=== PATIENT | male | born 1970 | race Caucasian/White ===

== ENCOUNTER 2022-02-01 11:45 | Inpatient (IN) | payer BC ==
[~2022-02-01] VITALS: Ht 193 cm; Wt 225.0 kg
[2022-02-01] MEDS ORDERED: morphine 2 MG/ML inj. syringe IV PRN ×2 (14:35)
[2022-02-01] MEDS ORDERED: nitroGLYCERIN 0.4mg SUBLingual tab SL PRN (14:35)
[2022-02-01] MEDS ORDERED: magnesium hydroxide 30ml (MOM) UD suspension PO PRN (14:35)
[2022-02-01] MEDS ORDERED: mag hydrox/Alum hydrox/simeth 30ml oral suspension PO PRN (14:35)
[2022-02-01] MEDS ORDERED: ondansetron/PF 4mg/2ml inj IV PRN (14:35)
[2022-02-01] MEDS ORDERED: acetaminophen 325mg tablet PO PRN ×2 (14:35)
[2022-02-01] MEDS ORDERED: HYDROcodone/acetaminophen 10/325mg tab PO PRN (14:35)
[2022-02-01] MEDS ORDERED: HYDROcodone/acetaminophen 5mg/325mg tablet PO PRN (14:35)
[2022-02-01] MEDS ORDERED: ALBU8HFA PO (14:53)
[2022-02-01] MEDS ORDERED: FURO-149 PO (14:53)
[2022-02-01] MEDS ORDERED: CARV6.253 PO (14:53)
[2022-02-01] MEDS ORDERED: BUSP7.5T3 PO (14:53)
[2022-02-01] MEDS ORDERED: LISI10TA27 PO (14:53)
[2022-02-01] MEDS ORDERED: POTA10TA PO (14:53)
[2022-02-01] MEDS ORDERED: HYDR-3686 PO (14:53)
[2022-02-01] MEDS ORDERED: CITA20TA27 PO (14:53)
[2022-02-01] MEDS ORDERED: APIX5TAB3 PO (14:53)
[2022-02-01] MEDS ORDERED: ACLI400A2 INH (15:08)
[2022-02-01] MEDS: docusate sod 100mg capsule PO SCH (20:46)
[2022-02-01] MEDS: furosemide 40mg/4ml inj IV SCH (20:46)
--- NOTE | 2022-02-01 21:30 | NUR ---
Received report from Courtney ED RN. Awaiting patient arrival to the floor.
--- NOTE | 2022-02-01 21:35 | NUR ---
Patient arrived to the floor via wheelchair accompanied by PCT. Placed in room 3025H. Placed on Tele. Patient awake, alert and oriented on room air, in no apparent distress. Call light and items of frequent use within reach. Will continue to monitor.
[2022-02-01 21:45] VITALS: BP 121/90
[2022-02-02] VITALS (13 sets, daily range): BP systolic 107–139; BP diastolic 73–104
[2022-02-02 02:02] LABS: BASOPHILS # (AUTO) 0.1 X10'3 (0-0.2); BASOPHILS % (AUTO) 1.1 % (0-1); EOSINOPHILS # (AUTO) 0.3 X10'3 (0-0.9); EOSINOPHILS % (AUTO) 3.8 % (0-6); HEMOGLOBIN 14.9 g/dl (14.0-17.9); LYMPHOCYTES # (AUTO) 2.6 X10'3 (1.1-4.8); LYMPHOCYTES % (AUTO) 28.4 % (21-51); MEAN CORPUSCULAR HEMOGLOBIN 31.9 PG (27.0-31.0); MEAN CORPUSCULAR HGB CONC 33.8 g/dL (33.0-36.5); MEAN CORPUSCULAR VOLUME 94.4 FL (78-98); MEAN PLATELET VOLUME 8.9 FL (7.4-10.4); MONOCYTES # (AUTO) 0.6 X10'3 (0-0.9); MONOCYTES % (AUTO) 6.4 % (2-12); NEUTROPHILS # (AUTO) 5.4 X10'3 (1.8-7.7); NEUTROPHILS % (AUTO) 60.3 % (42-75); PLATELET COUNT 255 X10'3 (140-440); RED BLOOD COUNT 4.66 X10'6 (4.70-6.10); RED CELL DISTRIBUTION WIDTH 14.5 % (11.5-14.5)
[2022-02-02 02:04] LABS: ALBUMIN 3.5 G/DL (3.4-5.0); ANION GAP 10 (8-16); BLOOD UREA NITROGEN 37 MG/DL (7-18); CALCIUM 8.9 MG/DL (8.5-10.1); CHLORIDE 103 MMOL/L (99-107); CREATININE 1.68 MG/DL (0.60-1.10); GLUCOSE 103 MG/DL (70-104); POTASSIUM 4.4 MMOL/L (3.5-5.1); SODIUM 139 MMOL/L (135-145); TOTAL CARBON DIOXIDE 26.4 MMOL/L (24-32); eGFR 43 ML/MIN
--- NOTE | 2022-02-02 06:26 | NUR ---
Problems reprioritized. Patient report given, questions answered & plan of care reviewed with IVAN Dang.
[2022-02-02] MEDS: furosemide 40mg/4ml inj IV SCH ×2 (07:37→12:37)
[2022-02-02] MEDS: aspirin 81mg, enteric-coated 1 TAB TABLET.DR PO SCH ×2 (07:38→12:36)
[2022-02-02] MEDS: docusate sod 100mg capsule PO SCH ×2 (07:38→12:36)
[2022-02-02] MEDS: apixaban 5mg tablet PO SCH ×2 (08:33→12:36)
[2022-02-02] MEDS: carvedilol 6.25mg tablet PO SCH ×2 (08:33→12:37)
[2022-02-02] MEDS: citalopram 20mg tablet PO SCH ×2 (08:34→12:36)
[2022-02-02] MEDS: lisinopril 10 MG tablet PO SCH ×2 (08:34→12:37)
[2022-02-02] MEDS ORDERED: nitroGLYCERIN 0.4mg SUBLingual tab SL PRN (08:35)
[2022-02-02] MEDS ORDERED: metoprolol tartrate 1mg/ml inj IV PRN (08:35)
[2022-02-02] MEDS ORDERED: aminophylline 500mg/20ml vial IV PRN (08:35)
[2022-02-02] MEDS ORDERED: regadenoson 0.4mg/5ml syringe IV PRN (08:35)
[2022-02-02] MEDS: busPIRone 15mg tablet PO SCH ×2 (08:35→12:37)
--- NOTE | 2022-02-02 13:24 | NUR ---
PAGER ID: [phone] MESSAGE: [id number] Edwardo Mallory: Stress test has resulted. can patient eat lunch? thanks, marissa [phone]
[2022-02-02] MEDS ORDERED: ALBU8HFA PO (13:51)
[2022-02-02] MEDS ORDERED: ACLI400A2 INH (13:51)
[2022-02-02] MEDS ORDERED: HYDR-3686 PO (13:51)
[2022-02-02] MEDS ORDERED: CITA20TA27 PO (13:51)
[2022-02-02] MEDS ORDERED: BUSP7.5T3 PO (13:51)
[2022-02-02] MEDS ORDERED: FURO-149 PO (13:51)
[2022-02-02] MEDS ORDERED: NICO1PAT36 TOP (13:51)
[2022-02-02] MEDS ORDERED: LISI10TA27 PO (13:51)
[2022-02-02] MEDS ORDERED: APIX5TAB3 PO (13:51)
[2022-02-02] MEDS ORDERED: CARV6.253 PO (13:51)
[2022-02-02] MEDS ORDERED: SPIR25TA5 PO (13:53)
[2022-02-02 15:47] LABS: CHOLESTEROL 185 MG/DL (0-200); HDL CHOLESTEROL 31 MG/DL (35-60); LDL CHOLESTEROL 127 MG/DL (50-100); TRIGLYCERIDES 195 MG/DL (20-135)
--- NOTE | 2022-02-02 16:00 | NUR ---
PAGER ID: [phone] MESSAGE: [id number] Edwardo Mallory: lipid panel resulted. would you like any new orders before this patient discharges? thanks! marissa [phone]
[2022-02-02] MEDS ORDERED: ATOR20TA66 PO (16:06)
--- NOTE | 2022-02-02 16:40 | NUR ---
Patient stable and appropriate for discharge home with family member. IV x2 removed, director of counterintelligence removed. all belongings taken from room. New RX e-scripted to preferred pharmacy ([facility]). All discharge instructions and education given and reviewed with patient, all questions answered.
[2022-02-02] MEDS ORDERED: hydrOXYzine 25 MG tablet PO SCH (21:00)
[2022-02-03] MEDS ORDERED: ACLIDINIUM BROMIDE PO SCH (08:00)
== END 2022-02-02 16:43 | disposition home or self-care (01) | DRG 291 ==
LOC: ER 11:46 → ED HOLD 14:35 → OBSVTOIN 17:35 → PCU 3S 21:25
PROVIDERS: ADMIT Internal Medicine; ATTEND Internal Medicine
PROC: 4A02XM4 Measurement of Cardiac Total Activity, External Approach (ICD-10-PCS; principal; 2022-02-02)
PROC: 3E033HZ Introduction of Radioactive Substance into Peripheral Vein, Percutaneous Approach (ICD-10-PCS; 2022-02-02)
DX: I11.0 Hypertensive heart disease with heart failure (principal); I50.23 Acute on chronic systolic (congestive) heart failure; I48.20 Chronic atrial fibrillation, unspecified; I20.9 Angina pectoris, unspecified; I42.0 Dilated cardiomyopathy; F15.10 Other stimulant abuse, uncomplicated; F17.210 Nicotine dependence, cigarettes, uncomplicated; R07.89 Other chest pain; F32.A Depression, unspecified; F41.9 Anxiety disorder, unspecified; I34.0 Nonrheumatic mitral (valve) insufficiency; J44.9 Chronic obstructive pulmonary disease, unspecified; N28.9 Disorder of kidney and ureter, unspecified; Z79.01 Long term (current) use of anticoagulants; Z79.899 Other long term (current) drug therapy; Z90.81 Acquired absence of spleen; Z95.810 Presence of automatic (implantable) cardiac defibrillator; Z71.51 Drug abuse counseling and surveillance of drug abuser; Z71.6 Tobacco abuse counseling
CPT/HCPCS: 36415; 71046; 78452; 80048; 80061; 83880; 84484; 85025; 87081; 93005; 93306; 96374; 99285; A9500; G0378; J1940; J2785; J7030

== ENCOUNTER 2024-10-27 14:11 | Inpatient (IN) | payer BC ==
[~2024-10-27] VITALS: Ht 185.4 cm; Wt 101.4 kg
[~2024-10-27 14:11] MED LIST: ACLI400A2 INH; ALBU8HFA PO; APIX5TAB3 PO; ATOR20TA66 PO; BUSP7.5T3 PO; CARV6.253 PO; CITA20TA27 PO; FURO-149 PO; HYDR-3686 PO; LISI10TA27 PO; NICO1PAT36 TOP; SPIR25TA5 PO
[2024-10-27 15:11] LABS: BASOPHILS # (AUTO) 0.1 X10'3 (0-0.2); EOSINOPHILS # (AUTO) 0.1 X10'3 (0-0.9); HEMATOCRIT 48.9 % (42.0-52.0); HEMOGLOBIN 15.8 g/dl (14.0-17.9); LYMPHOCYTES # (AUTO) 0.9 X10'3 (1.1-4.8); LYMPHOCYTES % (AUTO) 9.8 % (21-51); MEAN CORPUSCULAR HEMOGLOBIN 30.7 PG (27.0-31.0); MEAN CORPUSCULAR HGB CONC 32.3 g/dL (33.0-36.5); MEAN CORPUSCULAR VOLUME 94.9 FL (78-98); MEAN PLATELET VOLUME 8.5 FL (7.4-10.4); MONOCYTES # (AUTO) 0.8 X10'3 (0-0.9); MONOCYTES % (AUTO) 7.9 % (2-12); NEUTROPHILS # (AUTO) 7.6 X10'3 (1.8-7.7); NEUTROPHILS % (AUTO) 80.3 % (42-75); PLATELET COUNT 250 X10'3 (140-440); RED BLOOD COUNT 5.16 X10'6 (4.70-6.10); WHITE BLOOD COUNT 9.5 X10'3 (4.5-11.0)
[2024-10-27 15:33] LABS: ALANINE AMINOTRANSFERASE 758 U/L (12-78); ALBUMIN 3.6 G/DL (3.4-5.0); ALKALINE PHOSPHATASE 208 IU/L (46-116); ANION GAP 9 (8-16); ASPARTATE AMINO TRANSFERASE 819 U/L (10-37); BLOOD UREA NITROGEN 37 MG/DL (7-18); CHLORIDE 101 MMOL/L (99-107); CREATININE 1.61 MG/DL (0.60-1.10); GLUCOSE 101 MG/DL (70-104); POTASSIUM 5.3 MMOL/L (3.5-5.1); SODIUM 137 MMOL/L (135-145); TOTAL CARBON DIOXIDE 27.2 MMOL/L (24-32); eCRCL 59 ML/MIN; eGFR 45 ML/MIN
[2024-10-27 15:34] LABS: PRO BRAIN NATRIURETIC PEPTIDE 4653 PG/ML (0-125)
[2024-10-27 15:41] LABS: ALBUMIN/GLOBULIN RATIO 0.7 (1.1-1.5); TOTAL PROTEIN 8.6 G/DL (6.4-8.2)
[2024-10-27] MEDS ORDERED: ondansetron/PF 4mg/2ml inj IV PRN (18:40)
[2024-10-27] MEDS ORDERED: magnesium sulf-water 2g/50mL 50 ML IV PRN (18:40)
[2024-10-27] MEDS ORDERED: potassium Cl 40MEQ/1/2NS 520ml 520 ML IV PRN (18:40)
[2024-10-27] MEDS ORDERED: magnesium sulf-water 4G/100mL 100 ML IV PRN (18:40)
[2024-10-27] MEDS ORDERED: magnesium hydroxide 30ml (MOM) UD suspension PO PRN (18:40)
[2024-10-27] MEDS ORDERED: potassium Cl 20 mEq SR tablet PO PRN ×2 (18:40)
[2024-10-27] MEDS ORDERED: magnesium Cl slow-release 64mg tablet PO PRN (18:40)
[2024-10-27] MEDS ORDERED: mag hydrox/Alum hydrox/simeth 30ml oral suspension PO PRN (18:40)
[2024-10-27] MEDS: PERFLUTREN PROTEIN-A MICROSPHR (Optison) 0.22 MG/ML 3ML VIAL IV ONE (19:12)
[2024-10-27] MEDS ORDERED: ipratropium/albuterol 3ml nebule NEB PRN (19:15)
[2024-10-27] MEDS: K and/or MAG REPLACEMENT MC SCH (19:59)
[2024-10-27] MEDS: furosemide 20 MG/2 ML vial IV SCH (20:17)
[2024-10-27] MEDS: docusate sod 100mg capsule PO SCH (20:17)
[2024-10-27] MEDS: heparin, porcine 5000 units/ml vial SQ SCH (20:17)
[2024-10-27] MEDS ORDERED: POTA-206 PO (20:26)
[2024-10-27] MEDS ORDERED: DAPA10TA PO (20:26)
[2024-10-27] MEDS ORDERED: PER5325T PO (20:26)
[2024-10-27 20:32] VITALS: PULSE 118; RESP 20; O2SAT 99
[2024-10-27 22:00] VITALS: BP 151/98; PULSE 112; RESP 18; TEMP 97.9; O2SAT 98
[2024-10-27 22:22] VITALS: RESP 18; O2SAT 95
[2024-10-28] VITALS (8 sets, daily range): BP systolic 103–160; BP diastolic 79–90; PULSE 79–108; RESP 12–30; TEMP 97.5–98.7; O2SAT 95–97
[2024-10-28] MEDS: hydrOXYzine 25 MG tablet PO SCH (02:07)
[2024-10-28] MEDS: acetaminophen 325mg tablet PO PRN (02:13)
[2024-10-28] MEDS: LORazepam 2 mg/ml vial IV ONE (04:49)
[2024-10-28 07:28] LABS: BASOPHILS # (AUTO) 0.1 X10'3 (0-0.2); BASOPHILS % (AUTO) 1.4 % (0-1); EOSINOPHILS # (AUTO) 0.2 X10'3 (0-0.9); EOSINOPHILS % (AUTO) 2.8 % (0-6); HEMATOCRIT 43.4 % (42.0-52.0); HEMOGLOBIN 14.2 g/dl (14.0-17.9); LYMPHOCYTES # (AUTO) 1.3 X10'3 (1.1-4.8); LYMPHOCYTES % (AUTO) 16.4 % (21-51); MEAN CORPUSCULAR HEMOGLOBIN 30.7 PG (27.0-31.0); MEAN CORPUSCULAR HGB CONC 32.8 g/dL (33.0-36.5); MEAN CORPUSCULAR VOLUME 93.6 FL (78-98); MEAN PLATELET VOLUME 8.5 FL (7.4-10.4); MONOCYTES # (AUTO) 0.6 X10'3 (0-0.9); MONOCYTES % (AUTO) 7.6 % (2-12); NEUTROPHILS # (AUTO) 5.9 X10'3 (1.8-7.7); NEUTROPHILS % (AUTO) 71.8 % (42-75); PLATELET COUNT 233 X10'3 (140-440); RED BLOOD COUNT 4.63 X10'6 (4.70-6.10); RED CELL DISTRIBUTION WIDTH 14.7 % (11.5-14.5); WHITE BLOOD COUNT 8.2 X10'3 (4.5-11.0)
[2024-10-28] MEDS ORDERED: apixaban 5mg tablet PO SCH (08:00)
[2024-10-28 08:05] LABS: APTT 31 SECONDS (22-32); INR 1.9 INR
[2024-10-28 08:16] LABS: ALANINE AMINOTRANSFERASE 887 U/L (12-78); ALBUMIN 2.8 G/DL (3.4-5.0); ALKALINE PHOSPHATASE 165 IU/L (46-116); ANION GAP 9 (8-16); ASPARTATE AMINO TRANSFERASE 872 U/L (10-37); BILIRUBIN,DIRECT 1.5 MG/DL (0-0.3); BILIRUBIN,TOTAL 5.9 MG/DL (0.1-1.0); BLOOD UREA NITROGEN 38 MG/DL (7-18); BUN/CREATININE RATIO 24.7 (10.0-20.0); CALCIUM 8.3 MG/DL (8.5-10.1); CHLORIDE 102 MMOL/L (99-107); CREATININE 1.54 MG/DL (0.60-1.10); GLUCOSE 100 MG/DL (70-104); MAGNESIUM 1.9 MG/DL (1.5-2.4); POTASSIUM 4.3 MMOL/L (3.5-5.1); SODIUM 136 MMOL/L (135-145); TOTAL CARBON DIOXIDE 24.9 MMOL/L (24-32); eCRCL 62 ML/MIN; eGFR 47 ML/MIN
[2024-10-28 08:37] LABS: ALBUMIN/GLOBULIN RATIO 0.7 (1.1-1.5)
[2024-10-28] MEDS: DAPAGLIFLOZIN 10MG TABLET PO SCH (08:39)
[2024-10-28] MEDS: potassium chloride 10mEq ER tablet PO SCH (08:39)
[2024-10-28] MEDS: busPIRone 15mg tablet PO SCH (08:39)
[2024-10-28] MEDS: spironolactone 25 MG tablet PO SCH (08:39)
[2024-10-28] MEDS: citalopram 20mg tablet PO SCH (08:40)
[2024-10-28] MEDS: carvedilol 6.25mg tablet PO SCH (08:40)
[2024-10-28] MEDS: nicotine 21mg patch - 24 hr TD SCH (08:41)
[2024-10-28] MEDS: lisinopril 10 MG tablet PO SCH (13:08)
[2024-10-28] MEDS: EMPAGLIFLOZIN 10 MG TABLET PO SCH (13:08)
[2024-10-28 14:54] LABS: CREATININE 1.52 MG/DL (0.60-1.10); POTASSIUM 4.3 MMOL/L (3.5-5.1); eCRCL 63 ML/MIN; eGFR 48 ML/MIN
[2024-10-28 17:30] LABS: BILIRUBIN,URINE NEGATIVE (Neg); CLARITY,URINE SLIGHTLY CLOUDY (Clear); COLOR,URINE YELLOW (Yellow); GLUCOSE, URINE >=1000 mg/dl (Neg); KETONES,URINE NEGATIVE (Neg); LEUKOCYTE ESTERASE ,URINE NEGATIVE (Neg); NITRITES, URINE NEGATIVE (Neg); OCCULT BLOOD,URINE LARGE (Neg); PROTEIN,URINE TRACE mg/dl (Neg); UROBILINOGEN,URINE >=8.0 E.U/dL (0.2-1.0)
[2024-10-28 17:37] LABS: UA COLLECTION TYPE VOIDED
[2024-10-28 17:39] LABS: BACTERIA,URINE 1+ /HPF (Neg); RBC,URINE TNTC /HPF (0-2); SQUAMOUS EPITHELIAL CELL,UR FEW /LPF (FEW); WBC,URINE 0-4 /HPF (0-4)
[2024-10-28 17:40] LABS: URIC ACID CRYSTALS FEW /HPF (NEGATIVE)
[2024-10-28 17:57] LABS: URINE AMPHETAMINE SCREEN POSITIVE (Neg); URINE BARBITUATE SCREEN NEGATIVE (Neg); URINE BENZODIAZEPINES SCREEN NEGATIVE (Neg); URINE CANNABINOID SCREEN POSITIVE (Neg); URINE COCAINE SCREEN NEGATIVE (Neg); URINE METHADONE SCREEN NEGATIVE (Neg); URINE OPIATE SCREEN NEGATIVE (Neg); URINE PHENCYCLIDINE SCREEN NEGATIVE (Neg)
[2024-10-28 18:47] LABS: HEMOGLOBIN A1C 5.8 % (4.5-6.2)
[2024-10-28] MEDS: carVEDilol 12.5mg tablet PO SCH (19:31)
[2024-10-28] MEDS ORDERED: hydrOXYzine 25 MG tablet PO SCH (21:00)
[2024-10-28] MEDS: oxyCODONE/APAP 5-325mg tablet PO PRN (21:36)
[2024-10-29] VITALS (17 sets, daily range): BP systolic 97–135; BP diastolic 65–94; PULSE 55–90; RESP 13–20; TEMP 96.9–98.5; O2SAT 95–98
[2024-10-29 06:36] LABS: BASOPHILS # (AUTO) 0.1 X10'3 (0-0.2); BASOPHILS % (AUTO) 0.9 % (0-1); EOSINOPHILS # (AUTO) 0.5 X10'3 (0-0.9); EOSINOPHILS % (AUTO) 6.8 % (0-6); HEMATOCRIT 50.2 % (42.0-52.0); HEMOGLOBIN 16.2 g/dl (14.0-17.9); LYMPHOCYTES # (AUTO) 1.4 X10'3 (1.1-4.8); LYMPHOCYTES % (AUTO) 17.4 % (21-51); MEAN CORPUSCULAR HEMOGLOBIN 30.6 PG (27.0-31.0); MEAN CORPUSCULAR HGB CONC 32.3 g/dL (33.0-36.5); MEAN CORPUSCULAR VOLUME 94.7 FL (78-98); MEAN PLATELET VOLUME 8.4 FL (7.4-10.4); MONOCYTES # (AUTO) 0.7 X10'3 (0-0.9); MONOCYTES % (AUTO) 8.1 % (2-12); NEUTROPHILS # (AUTO) 5.3 X10'3 (1.8-7.7); NEUTROPHILS % (AUTO) 66.8 % (42-75); PLATELET COUNT 218 X10'3 (140-440); RED CELL DISTRIBUTION WIDTH 15.5 % (11.5-14.5)
[2024-10-29 06:51] LABS: INR 1.5 INR; PROTHROMBIN TIME 15.1 SECONDS (9.0-12.0)
[2024-10-29 06:54] LABS: APTT 30 SECONDS (22-32)
[2024-10-29 07:25] LABS: ALANINE AMINOTRANSFERASE 710 U/L (12-78); ALBUMIN 2.7 G/DL (3.4-5.0); ALBUMIN/GLOBULIN RATIO 0.6 (1.1-1.5); ALKALINE PHOSPHATASE 164 IU/L (46-116); ANION GAP 9 (8-16); BILIRUBIN,TOTAL 3.4 MG/DL (0.1-1.0); BLOOD UREA NITROGEN 38 MG/DL (7-18); BUN/CREATININE RATIO 26.6 (10.0-20.0); CALCIUM 8.3 MG/DL (8.5-10.1); CHLORIDE 101 MMOL/L (99-107); CREATININE 1.43 MG/DL (0.60-1.10); GLUCOSE 86 MG/DL (70-104); MAGNESIUM 2.2 MG/DL (1.5-2.4); SODIUM 133 MMOL/L (135-145); TOTAL CARBON DIOXIDE 23.1 MMOL/L (24-32); TOTAL PROTEIN 7.4 G/DL (6.4-8.2); eCRCL 67 ML/MIN; eGFR 52 ML/MIN
[2024-10-29 07:27] LABS: ASPARTATE AMINO TRANSFERASE 408 U/L (10-37); POTASSIUM 4.8 MMOL/L (3.5-5.1)
[2024-10-29] MEDS: spironolactone 25 MG tablet PO SCH (08:44)
[2024-10-29 10:23] LABS: PRO BRAIN NATRIURETIC PEPTIDE 1421 PG/ML (0-125)
[2024-10-29] MEDS ORDERED: iohexol 300mg/ml 100ml inj. ONE (11:33)
[2024-10-29] MEDS: normal saline 1000ml 1,000 ML IV SCH (12:29)
[2024-10-29] MEDS: multivitamins, therapeutics tablet PO SCH (12:29)
[2024-10-29] MEDS: DOBUTamine-DoBUTrex 500mg/D5W 250 ML IV SCH (14:23)
[2024-10-29] MEDS: sodium bicarbonate 1meq/ml inj 150 ML in dextrose 5%-water 1,000 ML IV SCH (15:58)
[2024-10-29] MEDS ORDERED: acetaminophen 325mg tablet PO PRN (19:50)
[2024-10-30] VITALS (7 sets, daily range): BP systolic 89–113; BP diastolic 62–83; PULSE 74–81; RESP 11–19; TEMP 98–98.2; O2SAT 94–98
[2024-10-30] MEDS: furosemide 20 MG/2 ML vial IV ONE (04:21)
[2024-10-30 05:14] LABS: HBSAG SCREEN Negative (Negative); HEP A AB, IGM Negative (Negative); HEP B CORE AB, IGM Negative (Negative); HEPATITIS C VIRUS ANTIBODY Non Reactive (Non Reactive)
[2024-10-30 06:43] LABS: BASOPHILS # (AUTO) 0.1 X10'3 (0-0.2); EOSINOPHILS # (AUTO) 0.5 X10'3 (0-0.9); HEMOGLOBIN 14.9 g/dl (14.0-17.9); LYMPHOCYTES # (AUTO) 1.3 X10'3 (1.1-4.8); MEAN CORPUSCULAR HEMOGLOBIN 30.9 PG (27.0-31.0); MONOCYTES # (AUTO) 0.8 X10'3 (0-0.9); RED BLOOD COUNT 4.81 X10'6 (4.70-6.10)
[2024-10-30 06:45] LABS: BASOPHILS % (AUTO) 1.5 % (0-1); EOSINOPHILS % (AUTO) 6.5 % (0-6); LYMPHOCYTES % (AUTO) 16.5 % (21-51); MEAN CORPUSCULAR VOLUME 93.7 FL (78-98); MEAN PLATELET VOLUME 8.5 FL (7.4-10.4); MONOCYTES % (AUTO) 10.6 % (2-12); NEUTROPHILS # (AUTO) 5.1 X10'3 (1.8-7.7); NEUTROPHILS % (AUTO) 64.9 % (42-75); PLATELET COUNT 248 X10'3 (140-440); RED CELL DISTRIBUTION WIDTH 14.9 % (11.5-14.5); WHITE BLOOD COUNT 7.8 X10'3 (4.5-11.0)
[2024-10-30 06:49] LABS: APTT 29 SECONDS (22-32); INR 1.3 INR; PROTHROMBIN TIME 13.3 SECONDS (9.0-12.0)
[2024-10-30 07:13] LABS: ALANINE AMINOTRANSFERASE 528 U/L (12-78); ALBUMIN 2.6 G/DL (3.4-5.0); ALBUMIN/GLOBULIN RATIO 0.6 (1.1-1.5); ALKALINE PHOSPHATASE 145 IU/L (46-116); ANION GAP 9 (8-16); ASPARTATE AMINO TRANSFERASE 215 U/L (10-37); BILIRUBIN,TOTAL 1.9 MG/DL (0.1-1.0); BLOOD UREA NITROGEN 34 MG/DL (7-18); BUN/CREATININE RATIO 24.8 (10.0-20.0); CALCIUM 8.1 MG/DL (8.5-10.1); CHLORIDE 101 MMOL/L (99-107); CREATININE 1.37 MG/DL (0.60-1.10); GLUCOSE 83 MG/DL (70-104); MAGNESIUM 2.1 MG/DL (1.5-2.4); POTASSIUM 4.3 MMOL/L (3.5-5.1); SODIUM 135 MMOL/L (135-145); TOTAL CARBON DIOXIDE 25.2 MMOL/L (24-32); TOTAL PROTEIN 7.1 G/DL (6.4-8.2); eCRCL 70 ML/MIN; eGFR 54 ML/MIN
[2024-10-30] MEDS: furosemide 20 MG/2 ML vial IV SCH (07:53)
[2024-10-30] MEDS: furosemide 40mg/4ml inj IV ONE (11:23)
[2024-10-30] MEDS ORDERED: LISI10TA27 PO (12:12)
[2024-10-30] MEDS ORDERED: FURO-149 PO (12:12)
[2024-10-30] MEDS ORDERED: CARV12.545 PO (12:12)
== END 2024-10-30 13:31 | disposition home or self-care (01) | DRG 291 ==
LOC: ER 14:12 → ED HOLD 18:43 → PCU 3S 21:55
PROVIDERS: ADMIT Internal Medicine; ATTEND Internal Medicine
PROC: BW251ZZ Computerized Tomography (CT Scan) of Chest, Abdomen and Pelvis using Low Osmolar Contrast (ICD-10-PCS; principal; 2024-10-29)
DX: I13.0 Hypertensive heart and chronic kidney disease with heart failure and stage 1 through stage 4 chronic kidney disease, or unspecified chronic kidney disease (principal); I50.23 Acute on chronic systolic (congestive) heart failure; I48.20 Chronic atrial fibrillation, unspecified; J44.9 Chronic obstructive pulmonary disease, unspecified; K40.90 Unilateral inguinal hernia, without obstruction or gangrene, not specified as recurrent; N18.9 Chronic kidney disease, unspecified; F15.10 Other stimulant abuse, uncomplicated; I42.7 Cardiomyopathy due to drug and external agent; R74.01 Elevation of levels of liver transaminase levels; K76.1 Chronic passive congestion of liver; Z79.01 Long term (current) use of anticoagulants; Z79.899 Other long term (current) drug therapy; Z90.81 Acquired absence of spleen; Z95.0 Presence of cardiac pacemaker; Z72.0 Tobacco use
CPT/HCPCS: 36415; 71045; 71250; 71260; 74176; 74177; 76700; 80053; 80074; 80305; 80329; 81001; 82248; 82565; 83036; 83735; 83880; 84132; 84484; 85025; 85610; 85651; 85730; 87081; 87535; 87538; 93005; 93306; 94760; 99291; G0378; J1250; J1644; J1940; J2060; J3490; J7030; J7070; Q0177; Q9967

== ENCOUNTER 2025-05-20 14:34 | Inpatient (IN) | payer BC, MEDICAID ==
[~2025-05-20] VITALS: Ht 185.4 cm; Wt 104.4 kg
[~2025-05-20 14:34] MED LIST changes: -ACLI400A2 INH; -ALBU8HFA PO; -ATOR20TA66 PO; +CARV12.545 PO; -CARV6.253 PO; +DAPA10TA PO; -HYDR-3686 PO; +PER5325T PO; +POTA-206 PO
--- NOTE | 2025-05-20 14:48 | ELECTROCARDIOGRAPH REPORT ---
[facility] Test Date: 2025-05-20 Test Time: 14:46:46 Pat Name: MELANIE PATHAK Department: [facility]- Patient ID: [facility]-[id number] Room: [place] [address] Gender: M Tool And Die Maker: : 1970 Requested By: JO-ANN BAUER Order Number: [id number] Reading MD: Dr. Beck Powers Measurements Intervals [place] Rate: 104 P: 62 [place]: 165 QRS: 95 QRSD: 100 T: 23 QT: 372 QTc: 490 Interpretive Statements Sinus tachycardia Biatrial enlargement Borderline right axis deviation Abnormal R-wave progression, late transition Borderline prolonged QT interval Baseline wander in lead(s) V1 Electronically Signed On 05-21-2025 21:40:[address] Beck Powers Please click the below link to view image of tracing.
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
--- NOTE | 2025-05-20 15:05 | RADIOLOGY REPORT ---
CHEST RADIOGRAPH Indication: CP Technique: DI CHEST,SINGLE VIEW COMPARISON: None FINDINGS: Left chest single lead cardiac pacer device. The cardiac silhouette is enlarged. The lungs demonstrate bilateral patchy airspace opacities. The pulmonary vasculature is prominent. There is no pleural effusion. There is no pneumothorax. IMPRESSION: Cardiomegaly with pulmonary vascular congestion and bilateral patchy airspace opacities.
[2025-05-20 15:11] LABS: MEAN PLATELET VOLUME 8.6 FL (7.4-10.4); RED CELL DISTRIBUTION WIDTH 15.0 % (11.5-14.5)
[2025-05-20 15:22] LABS: CREATININE 1.23 MG/DL (0.60-1.10); TOTAL CARBON DIOXIDE 28.7 MMOL/L (24-32); eCRCL 78 ML/MIN; eGFR 61 ML/MIN
[2025-05-20 15:30] LABS: PRO BRAIN NATRIURETIC PEPTIDE 6389 PG/ML (0-125)
--- NOTE | 2025-05-20 18:04 | RADIOLOGY REPORT ---
CLINICAL HISTORY: Pain in the left groin at site of hernia surgical repair TECHNIQUE: CT of the abdomen and pelvis was performed without IV contrast. This exam was performed according to our departmental dose optimization program. Up-to-date CT equipment and radiation dose reduction techniques are utilized as appropriate. CTDI 32.2 DLP 1716 COMPARISON: CT CT CHEST ABDOMEN PELVIS IV CON W/ IV CONTRAST on DOS: 10/29/24, US ULTRASOUND OF ABDOMEN on DOS: 10/29/24, CT CT CHEST ABDOMEN PELVIS on DOS: 10/27/24 FINDINGS: Abdomen/Pelvis: The pancreas, adrenal glands, gallbladder, liver, bladder, and prostate gland are grossly unremarkable. The spleen is absent. There is a 12 mm left UPJ calculus with no significant hydronephrosis. There is bilateral perinephric and periureteral stranding. Hypodense right renal lesion is incompletely characterized due to lack of IV contrast. The abdominal aorta is normal in course and caliber. There are mild atherosclerotic calcifications. There is no free intraperitoneal air or fluid. There is no enlarged abdominal pelvic lymph node. There is no bowel wall thickening or dilatation. The appendix is normal. There is colonic diverticulosis, [id number] in the left colon. There has been interval left inguinal hernia repair. There is mild soft tissue thickening and inflammation within the surgical bed. There is a small fat containing right inguinal hernia. Other: The imaged lower thorax demonstrates mild cardiomegaly with right-sided pacer wires. There are numerous soft tissue nodules adjacent to the left heart border, measuring up to 1.6 cm,2 similar to previous exam. There is moderate interstitial edema. No acute osseous abnormality is evident. Impression: 12 mm left UPJ calculus with no significant hydronephrosis. Bilateral perinephric and periureteral inflammation. Please correlate with urinalysis and laboratory values. Interval left inguinal hernia repair with mild inflammation/ soft tissue thickening within the surgical site. Small fat containing right inguinal hernia. Colonic diverticulosis. Moderate interstitial edema. Similar appearing extensive nodule division the left heart border. Etiology is unclear with differential including a vascular anomaly and abnormal lymph nodes. Further nonemergent workup recommended.
[2025-05-20] MEDS: morphine 4 MG/ML inj SYRINge IV ONE (19:34)
[2025-05-20] MEDS: ondansetron/PF 4mg/2ml inj IV ONE (19:34)
[2025-05-20 20:09] LABS: LEUKOCYTE ESTERASE ,URINE TRACE (Neg); NITRITES, URINE NEGATIVE (Neg); OCCULT BLOOD,URINE LARGE (Neg)
[2025-05-20 20:22] LABS: UA COLLECTION TYPE CLN CATCH MIDSTREAM
[2025-05-20 20:26] LABS: SQUAMOUS EPITHELIAL CELL,UR FEW /LPF (FEW)
[2025-05-20] MEDS ORDERED: magnesium Cl slow-release 64mg tablet PO PRN (20:40)
[2025-05-20] MEDS ORDERED: potassium Cl 40MEQ/1/2NS 520ml 520 ML IV PRN (20:40)
[2025-05-20] MEDS ORDERED: magnesium sulf-water 2g/50mL 50 ML IV PRN (20:40)
[2025-05-20] MEDS ORDERED: ondansetron/PF 4mg/2ml inj IV PRN (20:40)
[2025-05-20] MEDS ORDERED: magnesium sulf-water 4G/100mL 100 ML IV PRN (20:40)
[2025-05-20] MEDS ORDERED: potassium Cl 20 mEq SR tablet PO PRN ×2 (20:40)
[2025-05-20] MEDS ORDERED: mag hydrox/Alum hydrox/simeth 30ml oral suspension PO PRN (20:40)
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
[2025-05-20 21:50] LABS: APTT 32 SECONDS (22-32); INR 1.3 INR
[2025-05-20 22:02] LABS: CREATININE 1.22 MG/DL (0.60-1.10); TOTAL CARBON DIOXIDE 22.2 MMOL/L (24-32); eCRCL 78 ML/MIN; eGFR 62 ML/MIN
[2025-05-20 22:10] LABS: PHOSPHORUS 3.3 MG/DL (2.3-4.5)
[2025-05-20 22:50] LABS: URINE AMPHETAMINE SCREEN POSITIVE (Neg); URINE BARBITUATE SCREEN NEGATIVE (Neg); URINE BENZODIAZEPINES SCREEN NEGATIVE (Neg); URINE CANNABINOID SCREEN NEGATIVE (Neg); URINE COCAINE SCREEN NEGATIVE (Neg); URINE METHADONE SCREEN NEGATIVE (Neg); URINE OPIATE SCREEN POSITIVE (Neg); URINE PHENCYCLIDINE SCREEN NEGATIVE (Neg)
[2025-05-20] MEDS ORDERED: albuterol 2.5 MG/3 ML nebule NEB PRN (22:50)
[2025-05-20 23:10] VITALS: BP 137/103; PULSE 105; RESP 16; TEMP 97.7; O2SAT 97
[2025-05-20] MEDS: furosemide 10 MG/1 ML 10ml inj IV SCH (23:41)
[2025-05-20] MEDS: magnesium hydroxide 30ml (MOM) UD suspension PO PRN (23:57)
[2025-05-20] MEDS: oxyCODONE/APAP 5-325mg tablet PO PRN (23:58)
[2025-05-21] VITALS (8 sets, daily range): BP systolic 90–136; BP diastolic 64–109; PULSE 86–98; RESP 15–20; TEMP 97.4–98.7; O2SAT 93–99
[2025-05-21 05:46] LABS: ABSOLUTE RETICS # 216800 /CUMM (23000-93000); MEAN PLATELET VOLUME 8.9 FL (7.4-10.4); RED CELL DISTRIBUTION WIDTH 14.6 % (11.5-14.5)
[2025-05-21 06:09] LABS: CREATININE 1.19 MG/DL (0.60-1.10); LDL CHOLESTEROL 111 MG/DL (50-100); TOTAL CARBON DIOXIDE 27.8 MMOL/L (24-32); eCRCL 80 ML/MIN; eGFR 64 ML/MIN
[2025-05-21 06:24] LABS: CHOL/HDL RATIO 6.0 (0.00-4.99)
[2025-05-21] MEDS: K and/or MAG REPLACEMENT MC SCH (08:00)
[2025-05-21] MEDS ORDERED: busPIRone 15mg tablet PO SCH (08:00)
[2025-05-21] MEDS ORDERED: non-formulary drug (Dapagliflozin Propanediol (Farxiga) 1 TAB) PO SCH (08:00)
[2025-05-21] MEDS: EMPAGLIFLOZIN 25 MG TABLET PO SCH (08:37)
[2025-05-21] MEDS: docusate sod 100mg capsule PO SCH (08:37)
[2025-05-21] MEDS: busPIRone 15mg tablet PO SCH (08:38)
--- NOTE | 2025-05-21 09:04 | RADIOLOGY REPORT ---
INDICATION: jaundice TECHNIQUE: Multiple real-time sonographic images were obtained of the right upper quadrant. COMPARISON: CT CT ABDOMEN PELVIS on DOS: 05/20/25, CT CT CHEST ABDOMEN PELVIS IV CON W/ IV CONTRAST on DOS: 10/29/24, US ULTRASOUND OF ABDOMEN on DOS: 10/29/24, CT CT CHEST ABDOMEN PELVIS on DOS: 10/27/24 FINDINGS: The liver demonstrates homogeneous echotexture without focal mass lesions. The liver measures 16.6 cm. There is no intrahepatic or extrahepatic ductal dilatation. The common duct measures 0.4 cm. The gallbladder is without evidence of stone or sludge. The gallbladder wall measures 0.3 cm and is within normal limits. The right kidney measures 11.3 cm. The right kidney is normal in contour, size, and shape. The echogenicity is normal. There is no hydronephrosis. Right renal cyst measures 2.9 cm. The pancreas is not well visualized due to overlying bowel gas. IMPRESSION: Liver is enlarged measuring 16.6 cm. No acute findings.
--- NOTE | 2025-05-21 15:27 | PROGRESS NOTE ---
Daily Progress Note Providers to CC ~ Antibiotic Timeout Antibiotic Ordered?: No Subjective No new complaints. RN at bedside. States that they are not straining the urine. Patient has had no further complaints of pain in the groin. Objective Vital Signs Date Time Temp Pulse Resp B/P (MAP) Pulse Ox O2 Delivery O2 Flow Rate FiO2 05/21/25 12:13 88 20 95 Room Air* 0 21 05/21/25 10:00 97.9 118/80 (93) Result Diagram: 05/21/2545305/21/25453 Gen. awake alert oriented asymptomatic HEENT: Normocephalic, atraumatic, extraocular movements are intact, sclera anicteric, conjunctiva pinkish, moist oral mucosa, no rash or ulcers. NECK: Supple, no JVD, trachea midline. CHEST: Clear to auscultation, no wheezes crackles or rhonchi. HEART: Regular rate rhythm, no murmur gallop or rub. ABDOMEN: Soft, nontender, no organomegaly. EXTREMITIES: No cyanosis clubbing or edema. NEURO EXAM: Grossly nonfocal. MUSCULOSKELETAL : No joint swelling or deformities. SKIN: No rash or ulcers noted. Coagulation Studies Laboratory Tests Test 05/20/25 21:10 Prothrombin Time 13.2 SECONDS (9.0-12.0) H INR International Normalized Ratio 1.3 INR Activated Partial Thromboplast Time 32 SECONDS (22-32) Coagulation Comments Other Results Medications reviewed Problem\Assessment\Plan 54 years old male presented to the ER for evaluation of left groin pain. Patient has a left groin hernia repair on April 09, 2025 at [facility]. Since then he has had intermittent left groin pain which worsens on walking or exertion and subsides after resting. # left UPJ calculus with no hydronephrosis: Patient is presently pain free. Consider Urology consultation if patient continues to have any issues with pain or creatinine trending up # abnormal LFTs: Continue monitor #Alfred/CKD: Continue monitor creatinine #COPD without exacerbation: Inhaled bronchodilators p.r.n. # history of CHF without exacerbation: Continue Lasix, spironolactone, lisinopril and Coreg # hypertension: Continue lisinopril as noted above # code status: Full code Date of Service: May 21, 2025 Billing Provider: HARLAN GRIGGS MD Common Visit Codes: [id number] INP/OBS CARE(HIGH) HARLAN GRIGGS MD May 21, 2025 15:27
[2025-05-22 05:10] LABS: MEAN PLATELET VOLUME 8.7 FL (7.4-10.4); RED CELL DISTRIBUTION WIDTH 14.8 % (11.5-14.5)
[2025-05-22 05:11] LABS: CREATININE 1.67 MG/DL (0.60-1.10); TOTAL CARBON DIOXIDE 32.9 MMOL/L (24-32); eCRCL 57 ML/MIN; eGFR 43 ML/MIN
[2025-05-22 06:00] VITALS: BP 113/86; PULSE 86; RESP 16; TEMP 97.4; O2SAT 95
[2025-05-22 08:16] VITALS: PULSE 92; RESP 16; O2SAT 96
[2025-05-22 10:31] VITALS: BP 106/75; PULSE 93; RESP 16; TEMP 97.1; O2SAT 97
[2025-05-22 14:57] LABS: CREATININE 1.73 MG/DL (0.60-1.10); TOTAL CARBON DIOXIDE 32.2 MMOL/L (24-32); eCRCL 55 ML/MIN; eGFR 41 ML/MIN
--- NOTE | 2025-05-22 16:35 | PROGRESS NOTE ---
Daily Progress Note Providers to CC ~ Antibiotic Timeout Antibiotic Ordered?: No Subjective Patient denies having any further pain. Objective Vital Signs Date Time Temp Pulse Resp B/P (MAP) Pulse Ox O2 Delivery O2 Flow Rate FiO2 05/22/25 10:31 97.1 93 16 106/75 (85) 97 Room Air 05/22/25 08:16 0 21 Result Diagram: 05/22/25 0442 05/22/25 1424 Gen. awake alert oriented asymptomatic HEENT: Normocephalic, atraumatic, extraocular movements are intact, sclera anicteric, conjunctiva pinkish, moist oral mucosa, no rash or ulcers. NECK: Supple, no JVD, trachea midline. CHEST: Clear to auscultation, no wheezes crackles or rhonchi. HEART: Regular rate rhythm, no murmur gallop or rub. ABDOMEN: Soft, nontender, no organomegaly. EXTREMITIES: No cyanosis clubbing or edema. NEURO EXAM: Grossly nonfocal. MUSCULOSKELETAL : No joint swelling or deformities. SKIN: No rash or ulcers noted. Coagulation Studies Laboratory Tests Test 05/20/25 21:10 Prothrombin Time 13.2 SECONDS (9.0-12.0) H INR International Normalized Ratio 1.3 INR Activated Partial Thromboplast Time 32 SECONDS (22-32) Coagulation Comments Other Results Medications reviewed Problem\Assessment\Plan 54 years old male presented to the ER for evaluation of left groin pain. Patient has a left groin hernia repair on April 09, 2025 at [facility]. Since then he has had intermittent left groin pain which worsens on walking or exertion and subsides after resting. # left UPJ calculus with no hydronephrosis: Patient is asymptomatic at this time. Continue monitor creatinine. # hyperkalemia: Discontinue potassium replacement protocol. Recheck. Lokelma 10 g. # abnormal LFTs: Continue monitor #Alfred/CKD: Continue monitor creatinine, which is trending up. #COPD without exacerbation: Inhaled bronchodilators p.r.n. # history of CHF without exacerbation: Echocardiogram shows EF of 25%. We will hold Lasix, spironolactone due to worsening creatinine, continue lisinopril and Coreg # hypertension: Continue lisinopril as noted above # code status: Full code # disposition: Likely home in a.m. Date of Service: May 22, 2025 Billing Provider: HARLAN GRIGGS MD Common Visit Codes: [id number] INP/OBS CARE(HIGH) HARLAN GRIGGS MD May 22, 2025 16:35
--- NOTE | 2025-05-23 10:54 | DISCHARGE SUMMARY ---
Discharge Summary Providers to CC ~ Discharge Summary Admission Diagnosis: Acute on chronic heart failure, [facility] Hospital Course DATE OF ADMISSION: 05/20/2025 DATE OF DISCHARGE: 05/22/2025 Discharge Diagnosis\Comment: Left UPJ calculus Operations\Procedures: Echocardiogram Abdominal ultrasound Abdomen/pelvis CT Consultants: None Complications: None Condition on DC: Stable Discharge Summary: Reason for admission: 54 years old male with a history of congestive heart failure with systolic dysfunction, hypertension, COPD, presented to the ER for evaluation of left groin pain. Patient had a left inguinal hernia repair in April 09, 2025 at [facility]. Please refer to admission H&P for more details. Hospital course: Patient was admitted on the monitored floor and the hospital course is as follows. # left groin pain: CT of the abdomen and pelvis showed 12 mm left UPJ calculus with no significant hydronephrosis. While [place] planning to consult Urology, patient had complete resolution of his pain. It is likely that he may have passed the stone. # chronic systolic congestive heart failure without exacerbation: Patient had elevated proBNP however did not have any clinical signs of fluid overload. Continued on IV diuretics however because of hyperkalemia, spironolactone was withheld. Lasix was withheld as well once creatinine was noted to be trending up. # Alfred/CKD: Likely due to vasomotor nephropathy and diuretics. Lasix and spironolactone withheld. # abnormal LFTs: Monitored and trended down. # hypertension: Continued on lisinopril # depression: Continued on Celexa # COPD without exacerbation: Treated with inhaled bronchodilators as needed # hyperkalemia: Spironolactone was withheld. Discharge exam: I examined the patient on the day of discharge. Gen. awake alert oriented asymptomatic HEENT: Normocephalic, atraumatic, pupils round reactive to light and accommodation, extraocular movements are intact, sclera anicteric, conjunctiva pinkish, moist oral mucosa, no rash or ulcers. NECK: Supple, no JVD, trachea midline. CHEST: Clear to auscultation, no wheezes crackles or rhonchi. HEART: Regular rate rhythm, no murmur gallop or rub. ABDOMEN: Soft, nontender, no organomegaly. EXTREMITIES: No cyanosis clubbing or edema. NEURO EXAM: Grossly nonfocal. MUSCULOSKELETAL : No joint swelling or deformities. SKIN: No rash or ulcers noted. Disposition : Patient has signed out against medical advice. Stated he had something to attend to. Patient was explained that his creatinine is trending up and he will need to follow up with his PCP to closely monitor his creatinine and adjust his diuretics. *Problems/Diagnosis: (1) Acute kidney injury Status: Acute (2) Renal stone Status: Acute (3) Transaminitis Status: Acute Total Time Spent on D/C: > 30 Minutes Date of Service: May 23, 2025 Billing Provider: HARLAN GRIGGS MD Common Visit Codes: [id number] DISCH DAY >30min HARLAN GRIGGS MD May 23, 2025 10:54
--- NOTE | 2025-05-23 20:28 | CARDIOLOGY REPORT ---
APPROVED REPORT EXAM: Comprehensive 2D, Doppler, and color-flow Echocardiogram. Patient Location: 402 Blood Pressure: 120/86 mmHg Heart Rate: 97 bpm Indications Congestive Heart Failure Hypertension COPD Pacemaker (09/2019) DISTANCE EDUCATION TEACHER: BV. Richard MD Previous ECHO: 10/28/24, [facility], EF: 20; sev LVE; mod RVE; sev DESIREE; mod MR/TR 2D Dimensions RVDd 4.8 cm LA Diam 5.0 cm IVSd 1.0 (0.7-1.1cm) LVDd 6.5 cm PWd 1.1 (0.7-1.1cm) IVSs 1.3 (0.8-1.2cm) LVDs 5.8 (2.5-4.0cm) PWs 1.6 (0.8-1.2cm) LVOT Diameter 2.25 (1.8-2.4cm) LVEF(%) 22.1 (>50%) Ao Asc Diam. 2.88 cm IVC 19.60 mm FS (%) 10.4 % SV 47.4 ml CO 4.5 L/min M-Mode Dimensions Left Atrium(MM) 5.89 (2.5-4.0cm) Aortic Root 2.92 (2.2-3.7cm) Aortic Cusp Exc 2.77 (1.5-2.0cm) MV EPSS 1.9 (<0.5cm) Aortic Valve AoV Peak Luis Carlos. 91.4 cm/s AoV VTI 13.8 cm AO Peak GR. 3.3 mmHg AO Mean GR. 2 mmHg LVOT VTI 10.21 cm LVOT Peak Luis Carlos. 70.6 cm/s DOMENIC(VTI)/BSA 2.93 cm2/m2 DOMENIC (VTI) 2.93 cm2 AV DI 0.74 % Mitral Valve MV E Velocity 124.4 cm/s MV Peak Gr. 6 mmHg MV DECEL TIME 124 ms MV A Velocity 43.4 cm/s MV PHT 76 ms E/A Ratio 2.9 MVA (PHT) 2.89 cm2 MV VMax 123.3 cm/s TDI Lateral E' P. V 13.96 cm/s E/Lateral E' 8.9 Pulmonary Valve PAEDP 11.60 mmHg Tricuspid Valve TR P. Velocity 316 cm/s RAP ESTIMATE 10 mmHg TR Peak Gr. 40 mmHg RVSP 50 mmHg LEFT VENTRICLE Left ventricle is moderately dilated with normal wall thickness. Overall systolic function is severely decreased (known). LVEF is 25%. RIGHT VENTRICLE Right ventricle is mild to moderately dilated with decreased function. Elevated right heart pressures with an RVSP of 50 mmHg. ATRIA Left atrium is severely dilated. The right atrium size is normal. AORTIC VALVE Trileaflet AV appears mildly sclerotic without stenosis. No insufficiency. MITRAL VALVE Mild mitral annular calcification without stenosis. Moderate regurgitation. TRICUSPID VALVE The tricuspid valve is normal in structure with moderate regurgitation. PULMONIC VALVE The pulmonary valve is normal in structure with trace insufficiency. GREAT VESSELS The aortic root is normal in size. The ascending aorta is normal in size. The IVC is normal in size and collapses >50% with inspiration. PERICARDIUM Normal pericardium. No effusion. Other Information Study Quality: Adequate Conclusion Left ventricle is moderately dilated with normal wall thickness. Overall systolic function is severely decreased (known). LVEF is 25%. Right ventricle is mild to moderately dilated with decreased function. Elevated right heart pressures with an RVSP of 50 mmHg. Left atrium is severely dilated. Trileaflet AV appears mildly sclerotic without stenosis. No insufficiency. Mild mitral annular calcification without stenosis. Moderate regurgitation. The tricuspid valve is normal in structure with moderate regurgitation. The pulmonary valve is normal in structure with trace insufficiency. Normal pericardium. No effusion.
== END 2025-05-22 17:23 | disposition left against medical advice (07) | DRG 465 ==
LOC: ER 14:34 → ED HOLD 19:45 → ORTHO 4S 23:10
PROVIDERS: ADMIT Internal Medicine Pulmonary Disease; ATTEND Internal Medicine
DX: N20.2 Calculus of kidney with calculus of ureter (principal); N17.0 Acute kidney failure with tubular necrosis; I13.0 Hypertensive heart and chronic kidney disease with heart failure and stage 1 through stage 4 chronic kidney disease, or unspecified chronic kidney disease; I50.22 Chronic systolic (congestive) heart failure; I42.7 Cardiomyopathy due to drug and external agent; J44.9 Chronic obstructive pulmonary disease, unspecified; E87.5 Hyperkalemia; Z53.29 Procedure and treatment not carried out because of patient's decision for other reasons; N18.2 Chronic kidney disease, stage 2 (mild); K76.9 Liver disease, unspecified; R74.01 Elevation of levels of liver transaminase levels; F15.10 Other stimulant abuse, uncomplicated; I08.1 Rheumatic disorders of both mitral and tricuspid valves; F17.210 Nicotine dependence, cigarettes, uncomplicated; F32.A Depression, unspecified; Z80.3 Family history of malignant neoplasm of breast; Z80.8 Family history of malignant neoplasm of other organs or systems; Z95.810 Presence of automatic (implantable) cardiac defibrillator; Z82.49 Family history of ischemic heart disease and other diseases of the circulatory system; Z90.81 Acquired absence of spleen; Z79.899 Other long term (current) drug therapy
CPT/HCPCS: 36415; 71045; 74176; 76700; 80048; 80053; 80061; 80305; 81001; 82248; 82550; 83010; 83036; 83605; 83690; 83735; 83880; 84100; 84145; 84443; 84484; 85025; 85045; 85610; 85730; 87081; 87088; 93005; 93306; 94760; 96374; 96375; 99285; G0378; J1938; J2270; J2405